=== PATIENT | male | born 1960 | race Caucasian/White ===

== ENCOUNTER 2019-10-28 09:33 | Outpatient (CLI) | payer BC | END 2019-10-28 09:34 | disposition home or self-care (01) | LOC: CTENTCT 09:33 | PROVIDERS: ATTEND Otolaryngology Plastic Surgery within the Head & Neck | DX: J32.9 Chronic sinusitis, unspecified (principal) | CPT/HCPCS: 70486 ==

== ENCOUNTER 2019-11-10 06:57 | Day surgery (SDC) | payer BC ==
[2019-11-09 10:01] VITALS: BMI 29.9
[2019-11-10] MEDS ORDERED: AFRIN NASAL MIST 15 ML BOT ONE ×2 (07:12→09:02)
[2019-11-10] MEDS ORDERED: Lidocaine 1% w/Epinephrine 1:100K 20 ML VIAL ONE (09:02)
[2019-11-10] MEDS ORDERED: Bacitracin Zinc Ointment 30 gm TUBE ONE (09:02)
[2019-11-10] MEDS ORDERED: Fentanyl 100 MCG/2 ML VIAL ONE ×3 (09:06→11:29)
[2019-11-10] MEDS ORDERED: Midazolam HCl 2 mg/2 ml Vial ONE (09:06)
[2019-11-10] MEDS ORDERED: PROPOFOL 200 MG/20 ML VIAL ONE (10:28)
[2019-11-10] MEDS ORDERED: Succinylcholine Chloride 20 MG/ML 10 ml SYRINGE FS ONE (10:28)
[2019-11-10] MEDS ORDERED: Ondansetron PF 4 MG/2 ML Vial ONE (10:28)
[2019-11-10] MEDS ORDERED: Lidocaine 1% PF 5 ML VIAL ONE (10:28)
[2019-11-10] MEDS ORDERED: Dexamethasone 20 MG/5 ML VIAL ONE (10:28)
[2019-11-10] MEDS ORDERED: Labetalol HCl 100 MG/20 ML VIAL ONE (10:53)
[2019-11-10] MEDS ORDERED: HYDROcodone/Acetaminophen 5/325 mg Tablet ONE (12:17)
--- NOTE | 2019-11-10 18:00 | OP ---
DATE OF PROCEDURE: 11/10/2019 PREOPERATIVE DIAGNOSES: 1. Chronic rhinosinusitis. 2. Nasal septal deviation. 3. Bilateral inferior turbinate hypertrophy. 4. Nasal obstruction. 5. Bilateral nasal adhesions. ESTIMATED BLOOD LOSS: 50 mL. COMPLICATIONS: None. ANESTHESIA: GETA. PROCEDURES PERFORMED: 1. Bilateral endoscopic sinus surgery, total ethmoidectomy with removal of tissue. 2. Bilateral endoscopic sinus surgery, maxillary antrostomies with removal of tissue. 3. Bilateral endoscopic sinus surgery, sphenoidotomies. 4. Bilateral endoscopic sinus surgery, frontal sinusotomies. 5. Nasal septoplasty. 6. Bilateral inferior turbinates submucosal resection. 7. [employer] cranial base image-guided navigational surgery. DESCRIPTION OF PROCEDURE: The patient was taken to the operating room and GETA was obtained by the anesthesia staff. Afrin pledgets were then placed into the nasal cavity bilaterally. The patient was placed into the beach chair position and was prepped and draped for standard nasal surgical procedures. Following this, the Afrin pledgets were removed and 1% lidocaine with 1:100,000 epinephrine was injected via a 27 gauge needle into the nasal septum, the inferior turbinate and the middle turbinate bilaterally. Following this, a [place] incision was made on the left nasal septum and mucoperichondrial flaps were elevated. A strong 2 cm caudal and dorsal cartilage strut was left intact as the deviated portions of the nasal cartilage and bone was removed. A 4-0 gut stitch was used to reapproximate the nasal mucoperichondrial flaps as well as close the [place] incision. Following this, the submucosal microdebrider was used to puncture and submucosally resect the anterior-inferior portions of the hypertrophic inferior turbinates. The inferior turbinates were laterally outfractured with a [place] elevator. Following this, [employer] image-guided system was set up and calibrated. That was noted to be within 1 mm of accuracy. Following this, the navigational instruments were used along with the 0-degree endoscope to advance into the nasal cavity. Multiple adhesions from the nasal septum to the inferior turbinates and the middle turbinates and uncinate were lysed using the 0-degree microdebrider and sickle knife bilaterally. Following this, middle turbinates were allowed to be medialized using a [place] elevator and the uncinate process was anteriorly fractured using a ball-ended probe and then the uncinate was removed bilaterally using the 0 degree microdebrider bilaterally. Following this, the natural maxillary sinus ostia had been covered with scar band and scar tissue, which was removed using the 0-degree microdebrider and the curved microdebrider bilaterally. Following this, ethmoidal bulla was identified bilaterally and a 0-degree microdebrider was used to puncture the ethmoidal bulla on its medial and inferior aspect bilaterally. The ethmoidal cells were removed along with scar tissue traversing and obstructing the ethmoidal bulla area. This was removed using the 0-degree microdebrider and the straight [place]akes[place] forceps. Following this, the grand lamella was identified bilaterally and was punctured into the posterior ethmoidal cells. Working from posterior to anterior, the ethmoidal cells were opened using the 0-degree microdebrider and curved up-biting [place] forceps. Following this, the sphenoid sinus was identified by staying just medial and inferior to the attachment of the superior turbinates to the posterior nasal wall. A sphenoidotomy was created using a Marie tip suction bilaterally and then the sphenoidotomies were widened using the 0-degree microdebrider bilaterally in a medial and inferior direction. Following this, 45 degree endoscope and the 40-degree microdebrider blade were used to further open the frontal recess area and expose the frontal sinus ostia bilaterally. The frontal sinus ostia were then widened using the curved 40 degree microdebrider blade, a 45-degree endoscope, and up-biting [place] forceps. This was performed bilaterally. Following this, the nasal cavity was irrigated. NasoPore packing was placed within the middle meatus bilaterally and Yañez splints were placed and secured. The patient tolerated the procedure well. Job ID: [id number]
== END 2019-11-10 13:37 | disposition home or self-care (01) ==
LOC: SDC 06:57
PROVIDERS: ATTEND Otolaryngology Plastic Surgery within the Head & Neck
PROC: 09BS8ZZ Excision of Right Frontal Sinus, Via Natural or Artificial Opening Endoscopic (ICD-10-PCS; principal; 2019-11-10)
PROC: 099R8ZZ Drainage of Left Maxillary Sinus, Via Natural or Artificial Opening Endoscopic (ICD-10-PCS; principal; 2019-11-10)
PROC: 099W8ZZ Drainage of Right Sphenoid Sinus, Via Natural or Artificial Opening Endoscopic (ICD-10-PCS; principal; 2019-11-10)
PROC: 09BT8ZZ Excision of Left Frontal Sinus, Via Natural or Artificial Opening Endoscopic (ICD-10-PCS; principal; 2019-11-10)
PROC: 09BM8ZZ Excision of Nasal Septum, Via Natural or Artificial Opening Endoscopic (ICD-10-PCS; principal; 2019-11-10)
PROC: 099X8ZZ Drainage of Left Sphenoid Sinus, Via Natural or Artificial Opening Endoscopic (ICD-10-PCS; principal; 2019-11-10)
PROC: 099Q8ZZ Drainage of Right Maxillary Sinus, Via Natural or Artificial Opening Endoscopic (ICD-10-PCS; principal; 2019-11-10)
PROC: 09TL8ZZ Resection of Nasal Turbinate, Via Natural or Artificial Opening Endoscopic (ICD-10-PCS; principal; 2019-11-10)
PROC: 09BU8ZZ Excision of Right Ethmoid Sinus, Via Natural or Artificial Opening Endoscopic (ICD-10-PCS; principal; 2019-11-10)
PROC: 09BV8ZZ Excision of Left Ethmoid Sinus, Via Natural or Artificial Opening Endoscopic (ICD-10-PCS; principal; 2019-11-10)
DX: J32.9 Chronic sinusitis, unspecified (principal); J34.2 Deviated nasal septum; J34.3 Hypertrophy of nasal turbinates; J34.89 Other specified disorders of nose and nasal sinuses; G47.33 Obstructive sleep apnea (adult) (pediatric); Z79.899 Other long term (current) drug therapy; Z88.5 Allergy status to narcotic agent
CPT/HCPCS: 93005; 93010; J1100; J2001; J2250; J2405; J2704; J3010

== ENCOUNTER → 2021-10-17 | Outpatient (CLI) | payer BC | LOC: SLEEPLAB 17:00 | PROVIDERS: ATTEND Otolaryngology Plastic Surgery within the Head & Neck | DX: G47.33 Obstructive sleep apnea (adult) (pediatric) (principal); R53.83 Other fatigue; R06.83 Snoring; J30.9 Allergic rhinitis, unspecified; J01.90 Acute sinusitis, unspecified | CPT/HCPCS: 95806 ==